=== PATIENT | female | born 1955 | race American Indian/Alaskan Native ===

== ENCOUNTER 2021-12-07 08:28 | Emergency (ER) | payer MEDICARE ==
[2021-12-07] MEDS ORDERED: IPRATROPIUM/ALBUTEROL SULFATE 3 ML AMPUL.NEB IH ONE (08:48)
--- NOTE | 2021-12-07 08:48 | Emergency Department Report ---
ED Shortness of Breath HPI - General Chief Complaint: Dyspnea/Respdistress Stated Complaint: FLU/COVID SYMPTOMS Time Seen by Provider: 12/07/21 08:43 Source: patient Mode of arrival: Ambulatory Limitations: No Limitations - History of Present Illness Initial Comments: Patient presents with a 1 to 2-day history of respiratory symptoms including shortness of breath. She has had a slight cough with minimal congestion. She has had no fever. She has had subjective sweats and chills however. She started to have trouble breathing yesterday. This was with exertion, sitting still, and with speaking. She states that she tried to go to work but could not due to the dyspnea yesterday. She came in today for evaluation. She has had no arthralgias or myalgias. Patient denies GI upset. There is no pain or swelling in the legs. There is no recent travel or injury. She has had no known coronavirus exposure. On the third, she was having upper respiratory symptoms and was tested for coronavirus which was reportedly negative. She has had a flu shot. She has had a pneumonia shot. - Related Data Allergies Allergy/AdvReac Type Severity Reaction Status Date / Time No Known Allergies Allergy Unverified 12/07/21 08:30 ED Review of Systems ROS: Stated complaint: FLU/COVID SYMPTOMS Other details as noted in HPI Comment: All other systems reviewed and negative Constitutional: fever (Subjective) Eyes: denies: vision change ENT: denies: throat pain Respiratory: see HPI Cardiovascular: denies: chest pain Endocrine: denies: unexplained weight loss Gastrointestinal: denies: abdominal pain Genitourinary: denies: dysuria Musculoskeletal: denies: back pain Skin: denies: rash Neurological: denies: headache Hematological/Lymphatic: denies: easy bruising ED Past Medical Hx - Past Medical History Previous Medical History?: Yes Hx Hypertension: Yes Hx Diabetes: Yes - Family History Family history: hypertension ED Physical Exam - General Limitations: No Limitations, Other (Pulse ox noted to) General appearance: alert, in no apparent distress - Head Head exam: Present: atraumatic, normocephalic - Eye Eye exam: Present: normal appearance, EOMI - ENT ENT exam: Present: normal orophraynx, normal external ear exam - Neck Neck exam: Present: normal inspection. Absent: meningismus - Respiratory Respiratory exam: Present: normal lung sounds bilaterally. Absent: respiratory distress - Cardiovascular Cardiovascular Exam: Present: regular rate, normal rhythm. Absent: JVD - GI/Abdominal GI/Abdominal exam: Present: soft. Absent: distended, tenderness - Extremities Exam Extremities exam: Present: normal capillary refill. Absent: pedal edema - Back Exam Back exam: Absent: CVA tenderness (R), CVA tenderness (L) - Neurological Exam Neurological exam: Present: alert, oriented X3, CN II-XII intact, normal gait. Absent: motor sensory deficit - Psychiatric Psychiatric exam: Present: normal affect, normal mood - Skin Skin exam: Present: warm, dry ED Course Vital Signs 12/07/21 08:34 Temperature 97.5 F L Pulse Rate 106 H Respiratory 20 Rate Blood Pressure 144/87 O2 Sat by Pulse 96 Oximetry - Reevaluation(s) Reevaluation #1: 12/07/21 08:47 cxr ordered. 12/07/21 08:58 Old records noted. Critical Care Time: No Critical care attestation.: If time is entered above; I have spent that time in minutes in the direct care of this critically ill patient, excluding procedure time. ED Disposition Clinical Impression: Shortness of breath Disposition: 01 HOME / SELF CARE / HOMELESS Is pt being admited?: No Condition: Stable
--- NOTE | 2021-12-07 09:41 | XRay Report ---
CHEST 2 VIEWS INDICATION: dyspnea. Nausea, vomiting, heart/is and shortness of breath for 2 days COMPARISON: none FINDINGS: Support devices: None. Heart: Within normal limits. Lungs/pleura: No acute air space or interstitial disease. No pleural abnormality or pneumothorax. Additional findings: None. IMPRESSION: No acute findings. Signer Name: Amador De Los Santos Jr, MD Signed: 12/07/2021 9:37 AM Workstation Name: [id number]
[2021-12-07] MEDS ORDERED: ONDANSETRON 4 MG ODT TAB PO ONE (10:42)
[2021-12-07 11:51] VITALS: BP 156/82
== END 2021-12-07 11:52 | disposition home or self-care (01) ==
LOC: ED 08:28
DX: R06.02 Shortness of breath (principal)
CPT/HCPCS: 71046; 94640; 94644; 99283